=== PATIENT | male | born 1955 | race Caucasian/White ===

== ENCOUNTER 2018-01-28 07:53 | Emergency (ER) | payer MEDICARE ==
[~2018-01-28] VITALS: Ht 180.3 cm; Wt 77.1 kg
[2018-01-28 08:17] VITALS: BP 134/85
[2018-01-28] MEDS ORDERED: KETOROLAC TROMETH 60MG/2ML VIAL IM ONE (08:30)
== END 2018-01-28 09:24 | disposition home or self-care (01) ==
LOC: ER 07:53
DX: S86.911A Strain of unspecified muscle(s) and tendon(s) at lower leg level, right leg, initial encounter (principal); M54.16 Radiculopathy, lumbar region; G89.29 Other chronic pain; Z88.8 Allergy status to other drugs, medicaments and biological substances; Z88.7 Allergy status to serum and vaccine; X58.XXXA Exposure to other specified factors, initial encounter; Y93.89 Activity, other specified; Y99.8 Other external cause status; Y92.89 Other specified places as the place of occurrence of the external cause
CPT/HCPCS: 93971; 96372; J1885

== ENCOUNTER 2018-08-17 09:07 | Emergency (ER) | payer MEDICARE ==
[~2018-08-17] VITALS: Ht 180.3 cm; Wt 79.4 kg
[2018-08-17 09:51] VITALS: BP 141/78
[2018-08-17] MEDS ORDERED: LIDOCAINE 1% HCL (LOCAL ANESTH.) INJ 20ML MDV IJ ONE (10:15)
[2018-08-17] MEDS ORDERED: LIDOCAINE 1%HCL (LOCAL ANESTH) 10 ML MDV ONE (10:21)
== END 2018-08-17 11:23 | disposition home or self-care (01) ==
LOC: ER 09:07
DX: S61.411A Laceration without foreign body of right hand, initial encounter (principal); Z88.7 Allergy status to serum and vaccine; Z91.09 Other allergy status, other than to drugs and biological substances; W45.8XXA Other foreign body or object entering through skin, initial encounter; Y93.89 Activity, other specified; Y92.89 Other specified places as the place of occurrence of the external cause; Y99.8 Other external cause status
CPT/HCPCS: 12002; 99283; J2001